=== PATIENT | female | born 1995 | race Caucasian/White ===

== ENCOUNTER 2021-07-14 09:53 | Emergency (ER) | payer OTHER ==
[~2021-07-14] VITALS: Ht 162.6 cm; Wt 120.6 kg
[2021-07-14 10:14] VITALS: BP 162/91
--- NOTE | 2021-07-14 10:16 | PHYS DOC ---
Adult General Chief Complaint Chief Complaint: CONGESTION HPI HPI Patient is a 26-year-old female presenting for upper respiratory symptoms. She presents as she is concerned about known RSV exposure by her daughter in addition to known COVID-19 exposure by other family member. Reports 24 hours ago developing upper respiratory symptoms and today's started developing looser stools than usual. She has been afebrile and otherwise trying to self medicate with Benadryl, Sudafed and ibuprofen and Tylenol for aches and pains. She presents today for testing. She has history of high blood pressure otherwise no other medical issues and takes no other medications. No tobacco alcohol or drug use. She is not vaccinated against COVID-19 Review of Systems Review of Systems Fourteen body systems of review of systems have been reviewed. See HPI for pertinent positives and negative responses, other bonilla all other systems are negative, non-pertinent or non-contributory Allergies Allergies Allergies Coded Allergies Type Severity Reaction Last Updated Verified No Known Drug Allergies 07/14/21 No Physical Exam Physical Exam General: Appears well, non toxic, and comfortable Skin: Warm, dry. Normal for ethnicity. HEENT: Atraumatic. PERRLA. Rhinorrhea and congestion. Nasal turbinates boggy b/l. Moist mucous membranes. Uvula midline. Maintaining secretions. No phonation changes. Neck: Trachea midline. Normal ROM. No stridor. Respiratory: Normal WOB. CTAB w/o w/r/r. No tachypnea. Cardiovascular: Regular rate and rhythm. Normal peripheral perfusion. Abdomen: Soft. Non tender. No distension. Back: Normal ROM. Musculoskeletal: No swelling or deformity. Neuro: Alert and oriented x 4. MAEE. Lymph: No cervical LAD. Psych: Normal affect and mood. Current Patient Data Vital Signs Vital Signs Date Time Temp Pulse Resp B/P (MAP) Pulse Ox O2 Delivery O2 Flow Rate FiO2 07/14/21 10:14 98.5 115 18 162/91 (114) 99 Vital Signs Date Time Temp Pulse Resp B/P (MAP) Pulse Ox O2 Delivery O2 Flow Rate FiO2 07/14/21 10:14 98.5 115 18 162/91 (114) 99 EKG EKG [] Radiology/Procedures Radiology/Procedures [] Heart Score C/O Chest Pain: No Risk Factors: Risk Factors: DM, Current or recent (<one month) smoker, HTN, HLP, family history of CAD, obesity. Risk Scores: Risk Factors: DM, Current or recent (<one month) smoker, HTN, HLP, family history of CAD, obesity. Course & Med Decision Making Course & Med Decision Making CBC is unremarkable HPI and physical exam nonconcerning for any emergent or surgical issues I discussed most likely diagnosis of viral syndrome, cannot exclude COVID-19 in an unvaccinated individual. PCR COVID test obtained with results pending. Self quarantine and supportive care practices advised Koffi Disclaimer Koffi Disclaimer This electronic medical record was generated, in whole or in part, using a voice recognition dictation system. Departure Departure: Impression: Primary Impression: Viral syndrome Additional Impression: Person under investigation for COVID-19 Disposition: HOME / SELF CARE / HOMELESS Referrals: [facility]CP[facility] (PCP) Additional Instructions: You were seen for upper respiratory symptoms, fatigue, body aches, and possible infection with COVID-19. Your physical exam was reassuring. We tested you for COVID-19 but this test does not come back for 1 to 2 days. In the meantime you need to quarantine yourself at home away from all other individuals, especially those who are elderly or have any other chronic health issues or an immunocompromised status. You should return to the ED if you develop worsening cough, shortness of breath, chest pain, or any other new or concerning symptoms. Alternate Tylenol and ibuprofen as needed for body aches and pain. If your test does come back positive you need to quarantine yourself for 10 days until symptom-free. You should make sure to drink plenty of fluids and get plenty of rest. Problem Qualifiers EM HULL DO Jul 14, 2021 10:16
--- NOTE | 2021-07-15 10:26 | NUR ---
CHARGE NURSE NOTIFIED PATIENT OF COVID RESULTS
== END 2021-07-14 10:58 | disposition home or self-care (01) ==
LOC: ER 09:53
DX: U07.1 COVID-19 (principal); B34.9 Viral infection, unspecified
CPT/HCPCS: 99283; C9803; U0003

== ENCOUNTER 2021-10-30 09:05 | Emergency (ER) | payer OTHER ==
[~2021-10-30] VITALS: Ht 162.6 cm; Wt 120.6 kg
[2021-10-30] MEDS: IV NORMAL SALINE 1,000ML 1,000 ML IV ONE (09:30)
--- NOTE | 2021-10-30 09:33 | PHYS DOC ---
Past History Additional Past Medical Histor: hx of preeclampsia Past Surgical History: Appendectomy, , Tonsillectomy, Other Additional Past Surgical Histo: tubes in ears as child Alcohol Use: Rarely General Adult EDM: Chief Complaint: NAUSEA/VOMITING/DIARRHEA HPI: HPI: Patient is a 26-year-old female with nausea vomiting and crampy abdominal pain. Symptoms started 7 this morning. Patient has thrown up several times and also has had some loose stool. She has not had a fever that she is aware of. No history of trauma. No cough or shortness of breath. No sick contacts. Review of Systems: Review of Systems: Constitutional: Denies fever Eyes: Denies change in visual acuity or eye pain HENT: Denies sore throat Respiratory: Denies shortness of breath Cardiovascular: Denies chest pain GI: Denies abd pain : Denies dysuria Musculoskeletal: Denies back or extremity injury Integument: Denies rash or skin lesions Neurologic: Denies headache, focal weakness or sensory changes All other systems were reviewed and found to be within normal limits, except as documented in this note. Current Medications: Current Meds: Current Medications Medications (Trade) Dose Ordered Sig/Qing Start Time Stop Time Status Last Admin Dose Admin Famotidine (Pepcid Vial) 20 mg 1X ONCE 10/30/21 09:30 10/30/21 09:31 UNV Ondansetron HCl (Zofran) 4 mg 1X ONCE 10/30/21 09:30 10/30/21 09:31 UNV Sodium Chloride 1,000 ml @ 1,000 mls/hr 1X ONCE 10/30/21 09:30 10/30/21 10:29 UNV Allergies: Allergies: Allergies Coded Allergies Type Severity Reaction Last Updated Verified No Known Drug Allergies 10/30/21 No Physical Exam: PE: Constitutional: Well developed, well nourished, no acute distress, non-toxic appearance. HENT: Normocephalic, atraumatic, bilateral external ears normal, mucosa moist, nose normal. Eyes: EOMI, conjunctiva normal, no discharge. Neck: Normal range of motion, supple, no stridor, no meningeal signs. Cardiovascular: Regular rate and rhythm Lungs & Thorax: Bilateral breath sounds clear to auscultation Abdomen: Soft, no tenderness or obvious masses Skin: Warm, dry, no erythema, no rash. Extremities: No tenderness, no cyanosis, no clubbing, ROM intact, no edema. Neurologic: Alert and oriented, normal motor function, normal sensory function, no focal deficits noted. Psychologic: Affect normal, judgement normal, mood normal. Current Patient Data: Vital Signs: Vital Signs Date Time Temp Pulse Resp B/P (MAP) Pulse Ox O2 Delivery O2 Flow Rate FiO2 10/30/21 09:14 99.2 109 20 148/87 (107) 97 Room Air EKG: EKG: [] Radiology/Procedures: Radiology/Procedures: [] Heart Score: C/O Chest Pain: No Risk Factors: Risk Factors: DM, Current or recent (<one month) smoker, HTN, HLP, family history of CAD, obesity. Risk Scores: Score 0 - 3: 2.5% MACE over next 6 weeks - Discharge Home Score 4 - 6: 20.3% MACE over next 6 weeks - Admit for Clinical Observation Score 7 - 10: 72.7% MACE over next 6 weeks - Early Invasive Strategies Course & Med Decision Making: Course & Med Decision Making Pertinent Labs and Imaging studies reviewed. (See chart for details) [] 26-year-old female with nausea and vomiting. Patient was given IV fluids Pepcid and Zofran. On reassessment symptoms improved. Labs are negative, she is stable for discharge. Koffi Disclaimer: Koffi Disclaimer: This electronic medical record was generated, in whole or in part, using a voice recognition dictation system. Departure Departure: Impression: Primary Impression: Nausea & vomiting Disposition: HOME / SELF CARE / HOMELESS Condition: STABLE Referrals: DIMITRIOS LAWRENCE MD (PCP) Patient Instructions: Nausea and Vomiting Scripts Famotidine (PEPCID) 20 Mg Tablet 1 TAB PO BID for abd pain, #20 TAB 3 Refills Prov: MARY DAVIS MD 10/30/21 Ondansetron (ONDANSETRON ODT) 4 Mg Tab.rapdis 1 TAB PO Q6HRS for nausea, #20 TAB Prov: MARY DAVIS MD 10/30/21 MARY DAVIS MD Oct 30, 2021 09:33
[2021-10-30 10:00] LABS: BASO % 0 % (0-3); EOS % 0 % (0-3); HEMATOCRIT 40.4 % (36.0-47.0); HEMOGLOBIN 13.1 g/dL (12.0-15.5); LYMPH % 11 % (24-48); MEAN CORPUSCULAR HEMOGLOBIN 25 pg (25-35); MEAN CORPUSCULAR HGB CONC 33 g/dL (31-37); MEAN CORPUSCULAR VOLUME 77 fL (79-100); MONO # 0.5 x10^3/uL (0.0-1.1); MONO % 6 % (0-9); NEUT # 7.4 x10^3uL (1.8-7.7); NEUT % 83 % (31-73); PLATELET COUNT 308 x10^3/uL (140-400); RED BLOOD COUNT 5.25 x10^6/uL (3.50-5.40); RED CELL DISTRIBUTION WIDTH 15.2 % (11.5-14.5); WHITE BLOOD COUNT 8.9 x10^3/uL (4.0-11.0)
[2021-10-30 10:06] LABS: CALCIUM 9.1 mg/dL (8.5-10.1); CREATININE 0.9 mg/dL (0.6-1.0); GFR 76.9; POTASSIUM 3.9 mmol/L (3.5-5.1)
[2021-10-30 10:12] LABS: ALBUMIN 3.8 g/dL (3.4-5.0); ALBUMIN/GLOBULIN RATIO 0.9 (1.0-1.7); TOTAL BILIRUBIN 0.5 mg/dL (0.2-1.0)
[2021-10-30 10:13] LABS: CLARITY,URINE TURBID; COLOR,URINE YELLOW; GLUCOSE,URINE NEG (NEG); NITRITE,URINE NEG (NEG); UROBILINOGEN,URINE 0.2 mg/dL (0.2 mg/dL)
[2021-10-30 10:14] LABS: AMORPHOUS SEDIMENT,UR PRESENT /HPF; BACTERIA,URINE 0 /HPF (0-FEW); RBC,URINE 0 /HPF (0-2); SQUAMOUS EPITHELIAL CELL,UR FEW /LPF
[2021-10-30 10:15] LABS: U PREG PATIENT NEGATIVE (NEG)
[2021-10-30] MEDS: FAMOTIDINE 20 MG/2 ML VIAL IVP ONE (10:16)
[2021-10-30] MEDS: ONDANSETRON PF 4 MG/2 ML VIAL. IVP ONE (10:16)
[2021-10-30] MEDS ORDERED: ONDA4TAB12 PO (10:46)
[2021-10-30] MEDS ORDERED: FAMO-63 PO (10:46)
[2021-10-30 11:53] VITALS: BP 141/81
== END 2021-10-30 11:59 | disposition home or self-care (01) ==
LOC: ER 09:05
DX: R11.2 Nausea with vomiting, unspecified (principal)
CPT/HCPCS: 36415; 80053; 81001; 81025; 83690; 85025; 96361; 96374; 96375; 99284; J2405; J3490; J7030